=== PATIENT | male | born 1965 | race Two or more races ===

== ENCOUNTER 2016-06-27 10:53 | Emergency (ER) | payer BC ==
--- NOTE | 2016-07-04 13:31 | ER ---
ADMIT: 06/27/2016 RM/LOC: ER [facility] MR#: [id number] [address] [place], [place] [address] CLAUDIA CHILDSGEGEJESSEE [address] [address] Emergency Room Report SEX: M AGE: 50 : 1965 DATE: 06/27/2016 The patient is a , 50-years old of age, stated that he went to get the refills today at [facility] and was sent over to the ER for evaluation of his high blood pressure. He states the reason why his blood pressure is high because he does not have any more medication but when he arrived to the [facility], they scared him and told him that if he did not come to the ER, he could , so the patient is here now, awaiting to be seen and stating that he has no chest pain. No absolute problems. He just wants to have his prescription refill. He has type 2 diabetes, and has chronic hypertension for many years. He has no complaints. Blood pressure 147/87, pulse 88, respirations 16, temp 96.4, O2 sats 98%. He takes enalapril and metformin. No allergies. Apparently, he reported to them that he has had an DC and they of course, got extremely anxious and sent him over for evaluation. Physical examination, in very brief, no chest pain. He is afebrile. Vitals as read. Abdomen obese but not tender. No labs done. I consulted with Dr. Piper, went ahead and gave him a prescription refill of his medications, enalapril and metformin. IMPRESSION: History of hypertension, prescription refill. HOWIE Tran / Jovon Piper MD / eli JOB #: [id number] CC: Jovon Piper MD, Attending Physician Chidi Chao MD, Family Physician
[2016-07-20] MEDS ORDERED: VASOTEC DPS5 MG PO (13:11)
[2016-07-20] MEDS ORDERED: GLUCOPHAGE-DPS500 MG PO (13:11)
[2016-07-20] MEDS ORDERED: ASA325 MG PO (13:11)
[2016-07-20] MEDS ORDERED: TYLENOL DPS325 MG PO (13:12)
[2016-07-20] MEDS ORDERED: IMDUR DPS30 MG PO (13:12)
[2016-07-20] MEDS ORDERED: COREG DPS6.25 MG PO (13:12)
[2016-07-20] MEDS ORDERED: NITROSTAT0.4 MG SL (13:12)
[2016-07-20] MEDS ORDERED: PLAVIX75 MG PO (13:12)
[2016-07-20] MEDS ORDERED: MAALOX DPS30 ML PO (13:12)
[2016-07-20] MEDS ORDERED: LIPITOR20 MG PO (13:13)
== END 2016-06-27 12:30 | disposition home or self-care (01) ==
LOC: ER 10:53
DX: Z76.0 Encounter for issue of repeat prescription (principal); I10 Essential (primary) hypertension; E11.9 Type 2 diabetes mellitus without complications; Z79.899 Other long term (current) drug therapy

== ENCOUNTER 2016-07-14 19:10 | Inpatient (IN) | payer BC ==
[~2016-07-14] VITALS: Ht 175.3 cm; Wt 94.6 kg
--- NOTE | ~2016-07-14 | ECH ---
Transthoracic Echocardiography Report (TTE) Demographics Patient Name CLAUDIA CHILDS, Date of Study 07/15/2016 JESSEE Patient Number [id number] Visit Number [id number] Date of 1965 Room Number 413 Gender Male Number Age 50 year(s) Referring Darlyn Leon Supervisor Laundry Alpa Briceno Physician Jakob Frank MD [facility] Physician Interpreting Giselle GRAVES Timber Hand Physician Ajay Supervising Ordering Darlyn Leon MD/MLP Physician Nurse Stress Early Childhood Education Specialist Conclusions Contractility Score Summary Global Left Ventricular Hypokinesis was noted. Summary Technically good exam. The estimated left ventricular ejection fraction is 25-30%. The left ventricle is mildly dilated . Bubble study was done, there is no evidence for a PFO or ASD. There is trivial aortic regurgitation by color Doppler. Mild mitral regurgitation by color Doppler. Recommendation The patient will be given the results of this study by the physician who ordered the exam. Procedure Type of Study TTE procedure:Echo Complete SF. Procedure Date Date: 07/15/2016 Start: 08:31 AM Technical Quality: Good visualization Indications:Chest pain, CVA, Diabetes and Hypertension. Additional Indications:History of stent Appropriate Use Criteria: 9 Height: 69 inches Weight: 204 pounds BSA: 2.08 m Rhythm: Within normal limits HR: 74 bpm BP: 110/71 mmHg M-Mode/2D Measurements LV Diastolic Dimension: 6.33 cm LV Systolic Dimension: 5.9 cm LV Septum Diastolic: 0.74 cm LV PW Diastolic: 0.79 cm AO Root Dimension: 3.36 cm Cardiac Output: 4.02 l/min LA Dimension: 4.22 cm Cardiac Index: 1.93 l/min*m RV Diastolic Dimension: 3.23 cm LA volume index: 26 ml/m LVOT: 2.07 cm LVOT VTI: 16.14 cm RV Base: 2.5 cm LV Stroke volume: 54.29 ml RV Mid: 1.4 cm LV Stroke volume index: 26.1 ml/m TAPSE: 2.7 cm TDI-S': 13 cm/s Doppler Measurements AV Peak Velocity: 1.2 m/s MV Peak E-Wave: 1.1 m/s AV Peak Gradient: 5.76 mmHg MV Peak A-Wave: 0.96 m/s AV Mean Gradient: 3.84 mmHg MV E/A Ratio: 1.14 LVOT Peak Velocity: 0.85 m/s MV P1/2t: 51.7 msec AV Area (Continuity):2.28 cm MV Deceleration Time: 186.5 msec TR Velocity:2 m/s MV Area (PHT): 4.26 cm TR Gradient:15.94 mmHg PV Peak Velocity: 1.02 m/s Estimated RAP:5 mmHg PV Peak Gradient: 4.16 mmHg Estimated RVSP: 21 mmHg Estimated PASP: 20.94 mmHg E' Septal Velocity: 0.05 m/s A' Septal Velocity: 0.09 m/s E' Lateral Velocity: 0.11 m/s A' Lateral Velocity: 0.09 m/s RA Area: 11.6 cm Findings Left Ventricle The left ventricle is mildly dilated . Diastolic assessment reveals normal relaxation. Right Ventricle Normal right ventricle structure and function. Left Atrium Normal left atrial size. Informed consent was obtained, bubble study was done, there is no evidence for a PFO or ASD. Right Atrium Normal right atrial size. Mitral Valve Normal mitral valve structure and function. Mild mitral regurgitation by color Doppler. Aortic Valve The aortic valve was not well imaged. There is trivial aortic regurgitation by color Doppler. Tricuspid Valve Normal tricuspid valve structure and function. Trivial tricuspid regurgitation by color Doppler. Insufficient jet to calculate pulmonary pressures. Pulmonic Valve Normal pulmonic valve structure and function. Pericardial Effusion No evidence of pericardial effusion. Miscellaneous Visualized portions of the aortic root and ascending aorta appear normal in size. Suboptimal subcostal window to evaluate the IVC and interatrial septum. Pleural Effusion No evidence of pleural effusion. Contractility Score LV regional wall motion:(0-Non visualized 1-Normal 2-Hypokinesis 3-Akinesis 4-Dyskinesis 5-Aneurysm) Signature
--- NOTE | ~2016-07-14 | CATH ---
Cardiac Diagnostic Report Demographics Patient Name CLAUDIA CHILDS Gender Male JESSEE Date of 1965 Age 50 year(s) Patient Number [id number] Date of Study 07/17/2016 Visit Number [id number] Room Number 413 Corporate ID Ht 175.26 cm Wt 92.53 kg Accession Number [id number] BSA 2.08 m kg/m Referring Darlyn Leon Primary Physician Physician Matty Anaya MD Performing Matty Anaya MD Secondary Physician Physician Diagnostic Matty Anaya MD Assisting Physician Physician Interventional Physician Terminal Press Operator Physician Findings and Conclusions Diagnostic Findings and Conclusion Distal 3 vessel disease, unable to stent or bypass. Diagnostic Recommendations Medical management. Procedure Description The patient was brought to the diagnostic cardiac catheterization laboratory in the fasting, non-sedated state. Informed consent was obtained in the written and verbal form after the risks and benefits were explained. The patient had no further questions and agreed to proceed. The planned puncture-incision site(s) were shaved and prepped with ChloraPrep and draped in the usual sterile manner. Conscious sedation, supplemental oxygen, and pain control medications were delivered by a registered nurse under physician guidance. Surface ECG rhythm, blood pressure measurement, and pulse oximetry were monitored throughout the procedure. Arterial access. The access site was infiltrated with lidocaine. The right radial vessel was entered with the Seldinger technique. A 6F radial sheath was advanced into the vessel and used for catheter placement. Selective left coronary angiography. A 6F JL3.5 catheter was advanced into the left coronary vessel ostium under Fluoroscopic guidance. Contrast was injected by hand. Images were obtained in multiple projections. Selective right coronary angiography. A 6F FR4 catheter was advanced into the right coronary vessel ostium under fluoroscopic guidance. Contrast was injected by hand. Images were obtained in multiple projections. Left heart catheterization with ventriculography. A 6F FR4 catheter was advanced across the aortic valve to the left ventricle under fluoroscopic guidance. Resting hemodynamics were obtained. The catheter was gradually withdrawn into the aorta with continuous pressure recording. Arterial artery hemostasis was achieved using a TR band. The patient was transferred to a regular nursing floor via cart accompanied by a nurse. The patient left the laboratory in stable condition. Diagnostic Cath Status: Elective Procedure Procedure Type Diagnostic procedure:Angiography:, Coronary Angios w/[facility] Indications: Chest heaviness and pressure, CAD, Prior PCI with stent placement, Diabetes and Hypertension. The procedure was explained in detail to the patient. Risks, complications and alternative treatments were reviewed. Written consent was obtained. Medications Reviewed with Patient prior to Procedure. Complications: No Complication. Angiographic Findings Dominance: Mixed Cardiac Arteries and Lesion Findings LMCA: Abnormal. Lesion on LMCA: Distal subsection.20% stenosis . LAD: Abnormal.There is a previous stent on Prox LAD showing wide patency. Lesion on Dist LAD: 90% stenosis . Lesion on Prox LAD: 30% stenosis . The lesion was previously treated on 07/17/2014 with the following techniques: drug eluting stent. This is in-stentrestenosis. LCx: Abnormal. Lesion on 2nd LPL: Distal subsection.90% stenosis . Lesion on 2nd Ob Renae: Distal subsection.60% stenosis .Bifurcation lesion. Lesion on 1st Ob Renae: Mid subsection.80% stenosis . RCA: Abnormal. Lesion on Prox RCA: 70% stenosis . Lesion on Dist RCA: 80% stenosis . Coronary Tree Procedure Data Procedure Date Date: 07/17/2016Start: 10:16 AMEnd: 10:51 AM Entry Locations - Percutaneous access was performed through the Right Radial artery (Primary location). A 6 Fr sheath was inserted. Hemostasis was successfully obtained using a TR band. Procedure Medications Order and Administration + + +-------+--------+ !Time !Medication !Dosage !Route ! + + +-------+--------+ !07/17/2016 !Versed !2 mg !I.V. ! !10:14 AM ! ! ! ! + + +-------+--------+ !07/17/2016 !Fentanyl !25 mcg !I.V. ! !10:14 AM ! ! ! ! + + +-------+--------+ !07/17/2016 !Sodium Chloride !10 ml !I.V. ! !10:14 AM ! ! ! ! + + +-------+--------+ !07/17/2016 !Oxygen !2 l/min!NC ! !10:19 AM ! ! ! ! + + +-------+--------+ !07/17/2016 !SF Radial Cocktail: 200mcg Nitro, 2.5 mg ! !I.A. ! !10:24 AM !Verapamil, 5000u Heparin ! ! ! + + +-------+--------+ Devices Used - ACATH 6FR FL3.5 CATHETER 100CMwas used for:Left coronary angiography. - ACATH 6F FR4 CATHETER 100CMwas used for:Right coronary angiography. Contrast Material - Isovue 23670 ml Fluoroscopy Time: Diagnostic: 2:54 minutes. Total: 2:54 minutes. Fluoroscopy Dose: Diagnostic: 661 mGy. Total: 661 mGy. Estimated Blood Loss: 10 ml. Medical History Allergies - No known allergies. Risk Factors The patient risk factors include:prior PCI on 07/17/2014;cerebrovascular disease, treated hypertension, insulin-treated diabetes mellitus, last creatinine: 0.8 mg/dl, creatinine clearance: 141.37 ml/min, former tobacco use and prior [place] . Admission Data Admission Date: 07/15/2016 Admission Time: 12:57 AM Insurance Payors: [employer] insurance. Clinical Evaluation Leading to Procedure Diagnosed on 07/16/2016 12:00 AM. - The patient's CAD presentation was assessed as: Unstable angina. - The patient's anginal syndrome during the past two weeks was assessed as: Class II according to the [place] Cardiovascular Society Classification System (CCS). - The patient has been in a state of heart failure within the past two weeks. - The patient's heart failure status was assessed as NYHA Class II. Hemodynamics Condition: Rest O2 Consumption: Estimated: 260.11Heart Rate: 86 bpm Pressures (mmHg) +-----+ + !Site !Pressure ! +-----+ + !AO !107/69 (84) ! +-----+ + !LV !122/2 ,22 ! +-----+ + !AO !118/68 (90) ! +-----+ + !LV !122/2 ,21 ! +-----+ + Valve Gradients and Areas + +---------+---------+---------+ +---------+ + !Valve !Peak !Mean !Area !Index !Flow !Source ! + +---------+---------+---------+ +---------+ + !Aortic !4 !5 ! ! ! ! ! + +---------+---------+---------+ +---------+ + !Aortic !4 !5 ! ! ! ! ! + +---------+---------+---------+ +---------+ + Shunts Oxygen Values O2 Capacity 183.6 O2 Consumption 260.11 Signatures
--- NOTE | 2016-07-18 10:36 | CO ---
ADMIT: 07/15/2016 RM/LOC: 413 [facility] MR#: [id number] [address] [address] JESSEE PINA [address] [address] Consultation SEX: M AGE: 50 : 1965 DATE OF CONSULTATION: 07/15/2016 ATTENDING PHYSICIAN: Demario Santizo CONSULTING PHYSICIAN: Rhett Starr MD REASON FOR CONSULT: Chest pain, history of coronary artery disease. HISTORY OF PRESENT ILLNESS: Jessee is a pleasant 50-year-old, Ghanaian- speaking male, who yesterday began to experience left-sided chest pain. He describes it as a tightness in his chest. It lasted for about 1 to 2 hours and was relieved by initiation of nitroglycerin in the ER. He states that the pain was associated with shortness of breath and diaphoresis. While in the ER, he also began to complain of some left sided extremity weakness. A CT head was performed without contrast revealing chronic right greater than left frontal as well as right caudate infarct. He has not had any return of the chest pain since yesterday. He has had no new symptoms of shortness of breath or syncope. Cardiac history and risk factors: Jessee states via a paint spray inspector that two years ago he had a heart attack with stent placement. He states this was in [place], [place] at [facility]. He states that the pain and tightness he had yesterday was similar to the symptoms he had two years ago with his acute VA. He has no known vascular history other than findings in the ER of chronic appearing CVA. Cardiac risk factors include a history of hypertension and diabetes. PAST MEDICAL HISTORY: 1. Coronary artery disease with prior stent placement two years ago. 2. Diabetes mellitus. 3. Hypertension. ALLERGIES: HE HAS NO KNOWN ALLERGIES. MEDICATIONS: Current medications include: 1. NovoLog sliding scale. 2. Nitroglycerin drip. 3. Normal saline drip. Home medications prior to admission: 1. Metformin. 2. Enalapril. FAMILY HISTORY: Jessee denies any family history of heart disease. SOCIAL HISTORY: Jessee originate from [place]. He is employed here at [employer]. He denies any history of tobacco abuse and currently does not smoke. He denies any consumption of caffeine or alcohol. REVIEW OF SYSTEMS: GENERAL: Positive for fatigue. ADMIT: 07/15/2016 RM/LOC: 413 [facility] MR#: [id number] [address] [address] JESSEE PINA [address] [place] [address] Consultation SEX: M AGE: 50 : 1965 PULMONARY: Positive for some shortness of breath. CARDIAC: As per HPI. MUSCULOSKELETAL: Positive for some left sided weakness. ENDOCRINE: Positive for diabetes. NEUROLOGIC: Positive for stroke. PHYSICAL EXAMINATION: GENERAL: Alert male in no acute distress. VITAL SIGNS: Blood pressure 131/77, pulse 77, respirations 18, temp 96.6, weight 204. SKIN: Roland, warm and dry. EYES: Sclerae clear. No xanthelasmas. ENT: Oral mucosa is pink and moist. No jugular venous distention or carotid bruits. CHEST: Respirations are even and unlabored. Lungs are clear to auscultation. HEART: Regular rate and rhythm. Normal S1, S2. No murmurs, rubs or gallops. ABDOMEN: Soft and nontender. 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 EXTREMITIES: Peripheral pulses palpable. No clubbing, cyanosis or edema. PSYCHIATRIC: Alert and oriented. Mood and affect are appropriate. DIAGNOSTIC STUDIES: WBC 7.2, hemoglobin 14.6, platelets 206. Creatinine 0.9, glucose 227. LDL is 113, HDL 56, triglycerides 147, proBNP 1029. CK and MB have been within normal limits. Troponin currently 0.022, this was less than 0.015 yesterday. Carotid artery ultrasound is negative for significant stenosis. Chest x-ray noted low lung volumes only. CT head without contrast revealed chronic right greater than left frontal lobe and right caudate infarct. EKG revealed no acute ST elevations or depression. Echocardiogram is pending this morning. ASSESSMENT: 1. Chest pain. 2. Cerebrovascular accident. 3. Coronary artery disease history. 4. Hypertension. 5. Diabetes. PLAN: Jessee has some aspects of chest pain that he describes as similar to his prior angina. Other aspects seem atypical. We will await the echocardiogram results from this morning. If there are no wall motion abnormalities and his ejection fraction is normal, we would consider stress testing. We would not want to proceed with that now with his concurrent CVA. We will trend his enzymes and repeat an EKG to follow his status. We agree with continuing aspirin and statin therapy as it has just been ordered today for his CVA. ADMIT: 07/15/2016 RM/LOC: 413 [facility] MR#: [id number] [address] [place] [phone] JESSEE PINA [facility] [address] [place] [address] Consultation SEX: M AGE: 50 : 1965 Thank you for allowing us to participate in the care of this patient. HOWIE Aceves Student / Rhett Starr MD / eli JOB #: [id number] CC: Demario Santizo, Attending Physician Demario Santizo, Family Physician
--- NOTE | 2016-07-19 20:00 | ER ---
ADMIT: 07/15/2016 RM/LOC: 413 [facility] MR#: [id number] [address] [place], [place] [address] CLAUDIA CHILDSGEGEJESSEE [address] [address] Emergency Room Report SEX: M AGE: 50 : 1965 DATE: 07/14/2016 CHIEF COMPLAINT: Chest pain. HISTORY OF PRESENT ILLNESS: The patient is a 50-year-old male, employed at [employer], transported by [place] [employer] after complaining of exertional left chest discomfort associated with shortness of breath, nausea, diaphoresis at work today and states he has had stuttering discomfort for the past 3 days, status post PCI stent at [facility] in [place], [place], last year. No records are available. Paramedics treated with aspirin, nitroglycerin en route with improvement. PAST MEDICAL HISTORY: ILLNESSES: Type 2 diabetes, hypertension. OPERATIONS: PCI stent, no records available. ALLERGIES: NONE. MEDICATIONS: Please see nurse's MAR. SOCIAL HISTORY: Nonsmoker, nondrinker, no illicit drugs. FAMILY HISTORY: Negative per chart review. REVIEW OF SYSTEMS: A 12-point review of systems negative for all other systems, illnesses, or operations except as outlined above. PHYSICAL EXAMINATION: VITAL SIGNS: Temp 96.1, pulse 107, respirations 15, BP 145/96, SaO2 of 99% on room air. GENERAL: Anxious, non-diaphoretic, without jaundice or icterus. HEENT: Normocephalic. No evidence of epistaxis, rhinorrhea, or otorrhea. NECK: Supple without bruit. CHEST: Clear. Breath sounds equal. HEART: Regular rate and rhythm without murmur, gallop, or edema. ABDOMEN: Soft, nontender, nondistended without mass or megaly. Bowel sounds hypoactive. EXTREMITIES: No evidence of Homans sign, synovitis, or dermatitis. NEURO: EOMI. PERRLA. 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 Otherwise, negative. NIH stroke scale 3. MEDICAL DECISION MAKING: EKG on arrival showed sinus tach, rate of 108 with nonspecific T-wave changes laterally, no prior tracing. Chest x-ray, negative. Normal CBC, CMP, except glucose 323, CRP 0.72, lactic 2.2. Troponin less than 0.015 on admission, and 3 hours later. D-dimer 0.26. BN peptide 1029. The patient reported at time of discharge, that he was having left leg numbness and weakness that had started 2 to [address] head confirmed left frontal parietal infarct. Discussed case with Dr. Robert, who will consult in morning. No additional medicines at this time. Notified Dr. Santizo of admission, who agreed, Dr. Zimmerman gave orders to nursing staff. Due to the patient's presentation, findings, and intervention, 60 minutes of critical care is ADMIT: 07/15/2016 RM/LOC: 413 [facility] MR#: [id number] [address] [place] [phone] JESSEE PINA [facility] [address] [place] [address] Emergency Room Report SEX: M AGE: 50 : 1965 warranted. DIAGNOSES: 1. Chest pain, rule out acute coronary syndrome. 2. Cerebrovascular accident of right anterior cerebral artery with left- sided residual weakness. 3. Hypertension. 4. Type 2 diabetes. RECOMMENDATION: Admit inpatient PCU for Dr. Santizo. ADMISSION/DISCHARGE CONDITION: Stable. Huang Bahena MD/ gilbertol JOB #: [id number] CC: Demario Santizo MD, Attending Physician Demario Santizo MD, Family Physician
[2016-07-20] MEDS ORDERED: GLUCOPHAGE-DPS500 MG PO (13:11)
[2016-07-20] MEDS ORDERED: VASOTEC DPS5 MG PO (13:11)
[2016-07-20] MEDS ORDERED: ASA325 MG PO (13:11)
[2016-07-20] MEDS ORDERED: IMDUR DPS30 MG PO (13:12)
[2016-07-20] MEDS ORDERED: TYLENOL DPS325 MG PO (13:12)
[2016-07-20] MEDS ORDERED: MAALOX DPS30 ML PO (13:12)
[2016-07-20] MEDS ORDERED: COREG DPS6.25 MG PO (13:12)
[2016-07-20] MEDS ORDERED: NITROSTAT0.4 MG SL (13:12)
[2016-07-20] MEDS ORDERED: PLAVIX75 MG PO (13:12)
[2016-07-20] MEDS ORDERED: LIPITOR20 MG PO (13:13)
--- NOTE | 2016-08-01 13:58 | HP ---
ADMIT: 07/15/2016 RM/LOC: 413 [facility] MR#: [id number] [address] [place], [place] [address] JESSEE PINA [address] [address] History and Physical SEX: M AGE: 50 : 1965 DATE OF SERVICE: CHIEF COMPLAINT: Originally was chest pain, shortness of breath when he came into the ER. Cardiac enzymes and EKGs were negative x2. Patient was about to be discharged when he mentions that he has had left-sided weakness for the last 3 days. He states that it has affected his work, he is dropping things quite often. He says it is primarily on his left upper extremity and lower extremity. He says it has been going on for about 3-4 days. The patient had head CT that showed a right parietal, greater than 3 hour onset. Patient states he has not noticed any changes with speech or walking. He has not noted a droop. REVIEW OF SYSTEMS: Negative for chest pain, shortness of breath, nausea, vomiting, diarrhea. He denies any body aches, fevers, or chills. PAST MEDICAL HISTORY: Significant for hypertension, type 2 diabetes, history of stent, and history of nonobstructive coronary artery disease. MEDICATIONS: See list. ALLERGIES: NONE. SOCIAL HISTORY: Nonsmoker and nondrinker. FAMILY HISTORY: Noncontributory. REVIEW OF SYSTEMS: Negative otherwise mentioned in the HPI. LABORATORY DATA: Workup in the ER shows a white blood cell count of 8.2, hemoglobin of 14.9, and platelets of 194. Chest x-ray showed no acute findings. PT/INR was 10.2, less than 1 BNP, 137 sodium, 4.6 potassium, chloride is 102, CO2 of 21, BUN is 20, creatinine is 1.1. Blood sugar is 328. Sodium corrected is 133, I believe. Lactic acid was elevated at 2.2. PHYSICAL EXAMINATION: VITAL SIGNS: Most recent; 97.2 temperature, 77 pulse, 18 respiratory rate, blood pressure 110/71, O2 sats is 94% on room air. GENERAL: No acute distress. Alert and oriented x3. He is sleeping initially when I entered the room, was easily awoken. HEENT: Normocephalic, atraumatic. Moist mucous membranes. Extraocular muscles are intact. HEART: Regular rate and rhythm. LUNGS: Clear to auscultation bilaterally. ABDOMEN: Soft. Positive bowel sounds. Nontender. 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 The patient denies any left-sided ADMIT: 07/15/2016 RM/LOC: 413 [facility] MR#: [id number] [address] [place] [id number] JESSEE PINA [address] [place] [address] History and Physical SEX: M AGE: 50 : 1965 droopiness or difficulty with speech. ASSESSMENT AND PLAN: 1. This is a 50-year-old male who presents with a right parietal stroke with left hemiparesis. 2. Chest pain. 3. Hypertension. 4. Diabetes. We will start the patient on diabetic diet, activity as tolerated. Stroke protocol. We will check a lipid panel and hemoglobin A1c. We will consult Neurology for their expertise and the patient's symptoms. He is not having an acute stroke at this point in time, we will continue to monitor. Virginia Zimmerman MD Resident / Demario Santizo MD / modl JOB #: [id number] CC: Demario Santizo, Attending Physician Demario Santizo, Family Physician
--- NOTE | 2016-08-04 12:53 | DS ---
ADMIT: 07/15/2016 RM/LOC: 413 [facility] MR#: [id number] [id number] [place], [place] [address] JESSEE PINA [address] [address] General Discharge Summary SEX: M AGE: 50 : 1965 ADMISSION DATE: 07/15/2016 DISCHARGE DATE: 07/18/2016 CONSULTING TEAMS: Cardiology and Neurology. PROCEDURES DURING THIS HOSPITALIZATION: Heart catheterization. FINAL DIAGNOSES: 1. Coronary artery disease. 2. Right-sided frontal lobe infarct. 3. Right caudate head infarct. 4. Diabetes mellitus type 2. HISTORY OF PRESENT ILLNESS: The patient originally presented to the ER with chest pain on exertion, sweating, and shortness of breath. His pain resolved with nitroglycerin, and his first two sets of enzymes and EKGs were negative. He was also mentioning that for the past 3 days, he has had left-sided weakness in his arm and legs. He did notice that he was dropping things more frequently, but did not notice any slurring of speech. He did have some left- sided weakness on exam. Head CT showed chronic appearing right greater than left frontal lobe infarct as well as a right caudate head infarct. HOSPITAL COURSE: 1. Stroke: After initial head CT showing a right-sided infarct, further imaging was done with an MRI that showed an old infarct in the right middle cerebral artery and an old lacunar infarct on the left, and no acute intracranial findings. MRA also showed proximal vertebral artery narrowing, but no aneurysm. Right and left carotids were normal. The patient was started on daily aspirin and daily statin for stroke prevention. No other interventions were done at that time. The stroke symptoms were improving. 2. Chest pain: Again, the patient's initial symptoms resolved with a nitroglycerin in the ER. Initially, his EKG and lab work were negative. However, troponin did increase to 0.134 on 07/16/2016 on a repeat check. Due to the patient's extensive coronary artery disease history and history of stents, it was determined that the patient should undergo a heart catheterization. The patient also had a bubble echo as well that did not show any abnormalities. His echo showed LVEF of 25% to 30% with mild dilated left ventricle. The heart catheterization on 07/17/2016 showed some abnormalities, but were still consistent with medical management. No stents were needed to be placed at that time nor bypass warranted. 3. Diabetes mellitus: The patient is diagnosed with diabetes and his glucose was very elevated throughout his hospital stay. The patient admits to not taking his p.o. medications regularly, so he was started on metformin 500 mg b.i.d. Other comorbidities were managed appropriately. MEDICATIONS: 1. Aspirin 325 daily. ADMIT: 07/15/2016 RM/LOC: 413 [facility] MR#: [id number] [address] [id number] JESSEE PINA [address] [place] [address] General Discharge Summary SEX: M AGE: 50 : 1965 2. Coreg 6.25 mg b.i.d. 3. Imdur 30 mg daily. 4. Plavix 75 mg daily. 5. Vasotec 5 mg daily. 6. Maalox. 7. Tylenol 325 as needed. 8. Nitroglycerin as needed. 9. Metformin 500 b.i.d. 10.Lipitor 20 mg daily. DISCHARGE INSTRUCTIONS: Cardiac and diabetic diet. The patient is to go to cardiac rehab. He is discharged home with consult both on followup. He is supposed to see his PCP or myself, Dr. Zimmerman, in 7-10 days from discharge for followup as the patient was a [facility] patient for ourselves. CODE STATUS: Full. Virginia Zimmerman MD Resident / Demario Santizo MD / modl JOB #: [id number] CC: Demario Santizo MD, Attending Physician Demario Santizo MD, Family Physician
--- NOTE | 2016-08-12 10:27 | CO ---
ADMIT: 07/15/2016 RM/LOC: 413 [facility] MR#: [id number] [id number] [place], [place] [address] CLAUDIA CHILDSGEGEJESSEE [address] [address] Consultation SEX: M AGE: 50 : 1965 DATE OF CONSULTATION: 07/15/2016 ATTENDING PHYSICIAN: Demario Santizo CONSULTING PHYSICIAN: Zac Robert MD REASON FOR CONSULTATION: Ischemic stroke. HISTORY OF PRESENT ILLNESS: The patient is a 50-year-old gentleman with past medical history as below, who presented to [facility] ER yesterday with chest pain. The patient showed that he has weakness on the left side for about [address] scan showed chronic-appearing ischemic changes in right frontal lobe and lacunar infarction on left side and the basal ganglia. The CT also demonstrates calcification in intracranial vasculature. The patient already had a carotid Doppler, which did not show any flow-limiting lesions. A1c was 13.4, and LDL 113. PAST MEDICAL HISTORY: Significant for diabetes mellitus, hypertension, CAD status post stenting. FAMILY HISTORY: Positive for heart disease, stroke, and diabetes. SOCIAL HISTORY: Never a smoker. No significant alcohol use. REVIEW OF SYSTEMS: All systems reviewed, negative except as per HPI which includes cardiovascular chest pain and neurological weakness. MEDICATIONS: On outpatient basis included: 1. Metformin. 2. Enalapril. ALLERGIES: NO KNOWN ALLERGIES TO MEDICATIONS. PHYSICAL EXAMINATION: VITAL SIGNS: Temperature 96.6, heart rate 77, respirations 18, blood pressure 131/77, saturation 97% on room air. GENERAL: The patient is in no acute discomfort. HEAD: Normocephalic. NECK: Supple. CHEST: Clear to auscultation. CARDIOVASCULAR: S1, S2 noted. ABDOMEN: Nondistended. EXTREMITIES: No clubbing or cyanosis. NEUROLOGICAL EXAMINATION: The patient is awake, alert, oriented appropriately. No speech. No language deficit noted. The patient is Qatari speaking. Difficult to test fund of knowledge due to the language barrier. He is euthymic and affect is congruent with mood. Cranial nerves; visual gallegos are intact. Pupils equal, reactive. Extraocular muscles intact. Facial sensation reduced on left side. Face is mildly asymmetric with left- ADMIT: 07/15/2016 RM/LOC: 413 [facility] MR#: [id number] [address] [id number] CLAUDIA CHILDS JESSEE [address] [place] [address] Consultation SEX: M AGE: 50 : 1965 sided facial weakness. Hearing to voice is intact. Uvula is in midline and palatal arches are symmetric. Shoulder shrug is symmetric and tongue is midline, freely moveable. Motor examination reveals full strength on right side, 4+/5 on left side. Tone is normal bilaterally. Fine motor movements are fairly intact. Sensory hypesthesia on left side to temperature. Reflexes brisk and symmetric. Coordination slower on left side but normal finger-to- nose. Gait normal. ASSESSMENT: Chronic-appearing changes in right frontal lobe plus lacunar infarction on left side in a patient with intracranial atherosclerosis, uncontrolled diabetes, hypertension, hyperlipidemia. PLAN: We will obtain MRI and MRA head for staging or stroke. I do not think it is subacute. It rather appears chronic. TTE is pending. The patient will be started on aspirin 325 mg daily and pravastatin for secondary stroke prevention. SAROJ inhibitor to be started after we have staging or stroke confirmed. Lovenox to be started for DVT prevention. The patient will be seen by Rehab Services. Thank you very much for this interesting consultation. We will follow along. Zac Robert MD/ eli JOB #: [id number] CC: Demario Santizo, Attending Physician Demario Santizo, Family Physician
== END 2016-07-18 16:40 | disposition home or self-care (01) | DRG 287 ==
LOC: ER 19:10 → 4PCU 07-15 00:57
PROVIDERS: ADMIT Family Medicine
PROC: B2111ZZ Fluoroscopy of Multiple Coronary Arteries using Low Osmolar Contrast (ICD-10-PCS; principal; 2016-07-17)
PROC: 4A023N7 Measurement of Cardiac Sampling and Pressure, Left Heart, Percutaneous Approach (ICD-10-PCS; principal; 2016-07-17)
DX: I25.110 Atherosclerotic heart disease of native coronary artery with unstable angina pectoris (principal); I67.2 Cerebral atherosclerosis; E11.65 Type 2 diabetes mellitus with hyperglycemia; I10 Essential (primary) hypertension; Z95.5 Presence of coronary angioplasty implant and graft; Z79.4 Long term (current) use of insulin; Z86.73 Personal history of transient ischemic attack (TIA), and cerebral infarction without residual deficits